=== PATIENT | female | born 1970 | race Caucasian/White ===

== ENCOUNTER 2016-04-06 03:39 | Inpatient (IN) | payer OTHER ==
[~2016-04-06] VITALS: Ht 167.6 cm; Wt 82.0 kg
--- NOTE | ~2016-04-06 | PR ---
[place], [place] PROGRESS NOTE NAME: FORTINO CASTANO UNIT #: [id number] ROOM: 532 DOCTOR: DEVON PRESTON MD BIRTHDATE: [birth year] DOS: This is postop day 1 visit on her. The patient had a large right elbow abscess which was drained out and was packed. She is doing overall much better actually. The dressing is intact and the erythema is slowly receding. We will see her again and change the packing. Devon Preston MD CM:PNNENA [id number] DEVON PRESTON MD 04/08/16 2215 interface
--- NOTE | ~2016-04-06 | PR ---
[place], [place] PROGRESS NOTE NAME: [id number] UNIT #: [id number] ROOM: 532 DOCTOR: DEVON PRESTON MD BIRTHDATE: [birth year] DOS: SUBJECTIVE: Today is the second postop day after incision and drainage of large right elbow abscess. Overall, she is doing okay. Dressing was changed today and packing was removed. There is still some periabscess and induration deeply, but overall her arm and hand are getting less swollen. I did change the dressing with packing and light wrap. Recommend maybe Celebrex 200 mg p.o. b.i.d. for pain and q.o.d. change of dressing. Also, advised the patient to keep the hand up to get the swelling down, she understands. Devon Preston MD CM:PNTRANS [phone] DEVON PRESTON MD 04/09/16 0953 interface
--- NOTE | ~2016-04-06 | CON ---
[place], [place] REPORT OF CONSULTATION NAME[id number] UNIT #: [id number] ROOM: 532 DOCTOR: ERENDIRA MONTGOMERY MD BIRTHDATE: [birth year] DOS: REASON FOR CONSULTATION: Right upper extremity cellulitis. CONSULTING DOCTOR: Dr. Dailey. HISTORY OF PRESENTING ILLNESS: This is a 45-year-old woman, who is an intravenous drug abuser, who was admitted after she injected Percocet along with opana into the antecubital fossa of her right arm 4 days ago and apparently her had helped her to get injection into her right arm and he missed the vein and injected into the tissue. She had burning, worsening swelling and pain. She was unable to bend her arm. She came in and had incision and drainage by Dr. Preston on 04/06/2016. PAST MEDICAL HISTORY: Positive for history of antiphospholipid antibody syndrome, pulmonary embolism. PAST SURGICAL HISTORY: Includes hernia repair and tubal ligation. SOCIAL HISTORY: Ex-smoker. Does not drink alcohol. Occasional marijuana abuse, IV heroin and Percocet and IV opana abuse. FAMILY HISTORY: Mother has antiphospholipid antibody syndrome. Father has diabetes. ALLERGIES: No known drug allergies. HOME MEDICATIONS: No home medications except intravenous drugs that she abuses. REVIEW OF SYSTEMS: A 14-review of systems otherwise negative unless otherwise specified in the HPI. PHYSICAL EXAMINATION: VITAL SIGNS: Showed temperature of 98.1, heart rate 59, blood pressure 127/63, respiratory rate of 19, pulse ox of 100 on room air. GENERAL APPEARANCE: Awake, alert, oriented in time, place, and person, in no acute distress. HEENT: Oral cavity moist. NECK: Supple, no JVD, no lymphadenopathy. HEART: Regular rate and rhythm. S1, S2 normal. No murmurs, gallops or rubs. LUNGS: Clear bilaterally. ABDOMEN: Soft, nontender, nondistended, good bowel sounds. EXTREMITIES: Warm to touch. Pulses palpated bilaterally. Right antecubital fossa with redness involving the forearm and distal arm and surgically made incision with packing with surrounding erythema, pain and induration. LABORATORY DATA: Reviewed. WBC of 6.8, hemoglobin 9.6, platelets 169,000. BUN 15, creatinine 0.61, AST 26, ALT 42, alkaline phosphatase 69. Blood cultures pending, so far showing no growth. [place], [place] REPORT OF CONSULTATION NAME: FORTINO CASTANO UNIT #: [id number] ROOM: 532 DOCTOR: ERENDIRA MONTGOMERY MD BIRTHDATE: [birth year] IMAGING: Upper extremity ultrasound showing soft tissue density suggestive of abscess or phlegmon. ASSESSMENT AND PLAN: Right antecubital cellulitis with abscess secondary to intravenous drug abuse, status post incision and drainage. Currently on IV vancomycin and Zosyn. We will discontinue Zosyn, continue her on IV vancomycin. Follow blood cultures. The patient has no stigmata or signs of endocarditis. If she continues to improve in next 48 hours, could be discharged home on oral Bactrim two double strength twice daily for 10 more days. ERENDIRA MONTGOMERY MD CM:CONSTR:REPORT OF CONSULTATION 1717 05/12/16 1053 interface
--- NOTE | ~2016-04-06 | CON ---
[place], [place] REPORT OF CONSULTATION NAME: FORTINO CASTANO UNIT #: [id number] ROOM: 532 DOCTOR: DEVON PRESTON MD BIRTHDATE: [birth year] DOS: 04/06/2016 REASON FOR CONSULTATION: Right elbow abscess. HISTORY OF PRESENT ILLNESS: I saw this patient in the Emergency Room. The ER physician called me and I went down and saw the patient. She has developed a right elbow swelling, redness, a painful lump. The story is that she actually injected some drug into her vein and it has been going on for a few days now. She denies any fever. REVIEW OF SYSTEMS: Otherwise, unremarkable. ALLERGIES: No known allergy. PHYSICAL EXAMINATION: Limited to the elbow. She is keeping her elbow flexed. A medium-sized lump there. Periphery is red and middle is yellowish, is fluctuant in the middle and is very tender. Motion of the elbow causes pain. IMPRESSION: Right elbow abscess. She has been on antibiotic. I scheduled her for an I and D of the abscess tomorrow morning and she is scheduled. I did talk to the patient, she understands and agrees. Devon Preston MD CM:CONSTR:REPORT OF CONSULTATION 1701 04/07/16 0136 interface
--- NOTE | ~2016-04-06 | O ---
[place], [place] OPERATIVE NOTE NAME: FORTINO CASTANO UNIT #: [id number] ROOM: [facility] DOCTOR: DEVON PRESTON MD BIRTHDATE: [birth year] DOS: 04/07/2016 PREOPERATIVE DIAGNOSIS: Right elbow abscess. POSTOPERATIVE DIAGNOSIS: Right elbow abscess. PROCEDURE: Incision and drainage and packing. SURGEON: Devon Preston MD DESCRIPTION OF PROCEDURE: After MAC anesthesia, the patient's right arm and elbow were prepped and draped in normal sterile fashion. On palpation, the most fluctuant soft portion is identified and using 11 blade, incision made and large amount of pus was evacuated. Cultures were taken also. The incision is enlarged to accommodate my finger in to break all the loculi. Once that was done, I cleaned that area with peroxide and Betadine. A 4 x 4 used, soaked with Betadine as a packing. Pressure dressing applied. The patient tolerated the procedure well and sent to room. Devon Preston MD CM:OPRECORD:OPERATIVE NOTE [phone] DEVON PRESTON MD 04/07/16 0837 interface
[~2016-04-06 03:39] MED LIST: AUGMENTIN 875875 MG PO; CLINDAMYCIN HC300 MG PO; COUMADIN7.5 M1 PO; DULOXETINE HCL30 MG PO; HYDROCODONE BIT1 T11 PO; LIDOCAINE VISC100 ML MM; MOTRIN800 MG PO; NORVASC5 MG PO; PERIDEX118 ML MM; PRINIVIL20 M1 PO; Peridex 473 ML473 ML PO; SEPTRA DS 800 M1 TAB PO; TYLENOL325 M1 PO; XANAX1 MG PO; XARE20MG PO; [UNRECOGNIZED DRUG - OTHER] PO
[2016-04-06 03:54] VITALS: BP 135/87
[2016-04-06 04:18] LABS: BASO # 0.1 10*3/uL (0.0-0.1); BASO % 0.6 % (0.0-1.0); EOS # 0.2 10*3/uL (0.0-0.4); EOS % 2.2 % (1.0-4.0); HEMATOCRIT 35.8 % (37.0-47.0); HEMOGLOBIN 11.2 g/dl (12.0-16.0); LYMPH # 2.2 10*3/uL (1.3-4.4); LYMPH % 20.1 % (27.0-41.0); MEAN CELL VOLUME 79.9 fl (81.0-99.0); MEAN CORPUSCULAR HGB CONC 31.3 g/dl (33.0-37.0); MEAN PLATELET VOLUME 12.1 fl (9.6-12.3); MONO # 0.9 10*3/uL (0.1-1.0); MONO % 8.1 % (3.0-9.0); NEUT # 7.4 10*3/uL (2.3-7.9); NEUT % 68.7 % (47.0-73.0); PLATELET COUNT AUTOMATED 201 10*3/uL (130-400); RED BLOOD COUNT 4.48 10*6/uL (4.10-5.10); RED CELL DISTRI WIDTH 15.9 % (0-14.5); WHITE BLOOD COUNT 10.7 10*3/uL (4.8-10.8)
[2016-04-06 04:45] LABS: ALKALINE PHOSPHATASE 90 U/L (45-117); B-hCG (QUALITATIVE) NEGATIVE (NEGATIVE); BILIRUBIN, TOTAL 0.2 mg/dl (0.2-1.0); BUN 14 mg/dl (7-24); C-REACTIVE PROTEIN 5.53 MG/DL (0-0.3); CARBON DIOXIDE 25 mmol/L (21-32); CHLORIDE 106 mmol/L (98-107); EST GLOM FILT AFRICAN AMERICAN > 60 ml/min; GLUCOSE 109 mg/dL (65-99); POTASSIUM 3.8 mmol/L (3.5-5.1); SGOT/AST 31 IU/L (3-35); SGPT/ALT 60 U/L (12-78); SODIUM 140 mmol/L (136-145); TOTAL PROTEIN 7.3 gm/dL (6.4-8.2)
[2016-04-06 05:02] LABS: BILIRUBIN NEGATIVE (NEGATIVE); BLOOD NEGATIVE (NEGATIVE); CLARITY SL CLOUDY (CLEAR); COLOR YELLOW (YELLOW); GLUCOSE NEGATIVE (NEGATIVE); KETONE NEGATIVE (NEGATIVE); LEUKO ESTERASE 1+ (NEGATIVE); NITRITE NEGATIVE (NEGATIVE); PROTEIN TRACE (NEGATIVE); SPECIFIC GRAVITY 1.015 (1.005-1.030); UROBILINOGEN 0.2 E.U./dl (0.2-1.0)
[2016-04-06 05:10] LABS: EPITHELIAL CELLS 45-50
[2016-04-06 05:12] LABS: URINE AMPHETAMINES > 1000 (1000ng/ml); URINE BARBITURATES < 200 (200ng/ml); URINE COCAINE < 300 (300ng/ml)
[2016-04-06 05:13] LABS: WBC 21-30 wbc/hpf (0-5)
[2016-04-06 05:14] LABS: BACTERIA TRACE; URINE REFLEX COMMENT YES (NO)
[2016-04-06 06:39] LABS: MAGNESIUM 2.1 mg/dL (1.5-2.1); PHOSPHOROUS 2.5 mg/dL (2.5-4.9)
[2016-04-06 07:35] LABS: FOLIC ACID 5.52 ng/mL (>5.38); VITAMIN D, 25-HYDROXY 9.9 ng/mL (30-100)
[2016-04-06 07:47] VITALS: BP 138/86
[2016-04-06 12:15] VITALS: BP 89/44
[2016-04-06 16:00] VITALS: BP 110/55
[2016-04-06 20:00] VITALS: BP 113/61
[2016-04-07] VITALS (10 sets, daily range): BP systolic 125–147; BP diastolic 63–94
[2016-04-07 06:49] LABS: BASO % 0.4 % (0.0-1.0); EOS # 0.2 10*3/uL (0.0-0.4); EOS % 3.3 % (1.0-4.0); HEMATOCRIT 31.9 % (37.0-47.0); HEMOGLOBIN 9.6 g/dl (12.0-16.0); LYMPH # 1.8 10*3/uL (1.3-4.4); LYMPH % 26.1 % (27.0-41.0); MEAN CELL VOLUME 82.2 fl (81.0-99.0); MEAN CORPUSCULAR HGB 24.7 pg (27.0-31.0); MEAN CORPUSCULAR HGB CONC 30.1 g/dl (33.0-37.0); MEAN PLATELET VOLUME 12.1 fl (9.6-12.3); MONO # 0.6 10*3/uL (0.1-1.0); MONO % 8.1 % (3.0-9.0); NEUT # 4.2 10*3/uL (2.3-7.9); NEUT % 61.8 % (47.0-73.0); PLATELET COUNT AUTOMATED 169 10*3/uL (130-400); RED BLOOD COUNT 3.88 10*6/uL (4.10-5.10); RED CELL DISTRI WIDTH 15.9 % (0-14.5); WHITE BLOOD COUNT 6.8 10*3/uL (4.8-10.8)
[2016-04-07 07:30] LABS: ALBUMIN 2.1 gm/dl (3.1-4.5); ALKALINE PHOSPHATASE 69 U/L (45-117); BILIRUBIN, TOTAL 0.2 mg/dl (0.2-1.0); BUN 15 mg/dl (7-24); CARBON DIOXIDE 22 mmol/L (21-32); CHLORIDE 115 mmol/L (98-107); EST GLOM FILT AFRICAN AMERICAN > 60 ml/min; GLUCOSE 84 mg/dL (65-99); POTASSIUM 4.2 mmol/L (3.5-5.1); SGOT/AST 26 IU/L (3-35); SGPT/ALT 42 U/L (12-78); SODIUM 145 mmol/L (136-145); TOTAL PROTEIN 5.3 gm/dL (6.4-8.2)
[2016-04-08] VITALS (7 sets, daily range): BP systolic 105–165; BP diastolic 58–90
[2016-04-08] MEDS ORDERED: VIBRA-TAB100 MG PO ×2 (15:40→15:52)
[2016-04-09] VITALS: BP 126/74
[2016-04-09 05:47] LABS: BASO # 0.1 10*3/uL (0.0-0.1); BASO % 0.9 % (0.0-1.0); EOS # 0.3 10*3/uL (0.0-0.4); EOS % 5.1 % (1.0-4.0); HEMATOCRIT 31.5 % (37.0-47.0); HEMOGLOBIN 9.6 g/dl (12.0-16.0); LYMPH # 1.8 10*3/uL (1.3-4.4); LYMPH % 31.2 % (27.0-41.0); MEAN CELL VOLUME 80.2 fl (81.0-99.0); MEAN CORPUSCULAR HGB 24.4 pg (27.0-31.0); MEAN CORPUSCULAR HGB CONC 30.5 g/dl (33.0-37.0); MEAN PLATELET VOLUME 11.5 fl (9.6-12.3); MONO # 0.3 10*3/uL (0.1-1.0); MONO % 5.6 % (3.0-9.0); NEUT # 3.3 10*3/uL (2.3-7.9); PLATELET COUNT AUTOMATED 194 10*3/uL (130-400); RED BLOOD COUNT 3.93 10*6/uL (4.10-5.10); RED CELL DISTRI WIDTH 15.4 % (0-14.5); WHITE BLOOD COUNT 5.9 10*3/uL (4.8-10.8)
[2016-04-09 08:00] VITALS: BP 150/80
[2016-04-09 12:00] VITALS: BP 154/75
[2016-04-09] MEDS ORDERED: ATARAX,VISTARIL50 MG PO (13:11)
[2016-04-09] MEDS ORDERED: D-1000 185 MG-11 TAB PO (13:11)
[2016-04-09] MEDS ORDERED: NATURE'S BLEND F1 MG PO (13:11)
[2016-04-09] MEDS ORDERED: VITAMIN B-11 TAB PO (13:11)
[2016-04-09] MEDS ORDERED: CARBIDOPA/LEVOD1 TA1 PO (13:11)
[2016-04-09] MEDS ORDERED: METHOCARBAMOL750 M1 PO (13:11)
[2016-04-09] MEDS ORDERED: THERA TABS1 TAB PO (13:11)
[2016-04-09] MEDS ORDERED: XARE15TA PO (13:11)
== END 2016-04-09 14:45 | disposition home or self-care (01) | DRG 602 ==
LOC: ED 03:39 → EDHOLD 05:23 → 5E 11:57
PROVIDERS: Emergency Medicine Emergency Medical Services; Hospitalist
PROC: 0R9L0ZX Drainage of Right Elbow Joint, Open Approach, Diagnostic (ICD-10-PCS; principal; 2016-04-07)
DX: L03.113 Cellulitis of right upper limb (principal); E43 Unspecified severe protein-calorie malnutrition; D68.59 Other primary thrombophilia; F11.23 Opioid dependence with withdrawal; D68.61 Antiphospholipid syndrome; D64.9 Anemia, unspecified; F12.10 Cannabis abuse, uncomplicated; E55.9 Vitamin D deficiency, unspecified; L02.413 Cutaneous abscess of right upper limb; Z86.711 Personal history of pulmonary embolism; Z98.51 Tubal ligation status; Z87.891 Personal history of nicotine dependence; Z91.14 Patient's other noncompliance with medication regimen; Z83.3 Family history of diabetes mellitus; Z68.29 Body mass index [BMI] 29.0-29.9, adult

== ENCOUNTER 2016-09-16 17:44 | Emergency (ER) | payer OTHER ==
[~2016-09-16] VITALS: Ht 167.6 cm; Wt 81.6 kg
[~2016-09-16 17:44] MED LIST changes: +ATARAX,VISTARIL50 MG PO; +CARBIDOPA/LEVOD1 TA1 PO; +D-1000 185 MG-11 TAB PO; +METHOCARBAMOL750 M1 PO; +NATURE'S BLEND F1 MG PO; +THERA TABS1 TAB PO; +VIBRA-TAB100 MG PO; +VITAMIN B-11 TAB PO; +XARE15TA PO
[2016-09-16 17:57] VITALS: BP 151/95
[2016-09-16 18:38] LABS: BASO # 0.1 10*3/uL (0.0-0.1); BASO % 0.6 % (0.0-1.0); EOS # 0.1 10*3/uL (0.0-0.4); EOS % 0.7 % (1.0-4.0); HEMATOCRIT 36.7 % (37.0-47.0); LYMPH # 2.7 10*3/uL (1.3-4.4); LYMPH % 28.7 % (27.0-41.0); MEAN CELL VOLUME 75.8 fl (81.0-99.0); MEAN CORPUSCULAR HGB 22.7 pg (27.0-31.0); MEAN PLATELET VOLUME 11.4 fl (9.6-12.3); MONO # 0.3 10*3/uL (0.1-1.0); NEUT # 6.3 10*3/uL (2.3-7.9); NEUT % 66.7 % (47.0-73.0); PLATELET COUNT AUTOMATED 338 10*3/uL (130-400); RED BLOOD COUNT 4.84 10*6/uL (4.10-5.10); RED CELL DISTRI WIDTH 16.7 % (0-14.5); WHITE BLOOD COUNT 9.4 10*3/uL (4.8-10.8)
[2016-09-16] MEDS ORDERED: CEPHALEXIN500 M1 PO (18:51)
[2016-09-16 18:53] LABS: ALBUMIN 3.4 gm/dl (3.1-4.5); ALKALINE PHOSPHATASE 83 U/L (45-117); BILIRUBIN, TOTAL 0.4 mg/dl (0.2-1.0); BUN 11 mg/dl (7-24); CARBON DIOXIDE 25 mmol/L (21-32); CHLORIDE 107 mmol/L (98-107); EST GLOM FILT AFRICAN AMERICAN > 60 ml/min; GLUCOSE 102 mg/dL (65-99); POTASSIUM 3.9 mmol/L (3.5-5.1); SGOT/AST 17 IU/L (3-35); SGPT/ALT 20 U/L (12-78); SODIUM 141 mmol/L (136-145); TOTAL PROTEIN 7.7 gm/dL (6.4-8.2)
[2016-09-16] MEDS ORDERED: Motrin,Rufen800 MG PO (19:06)
== END 2016-09-16 19:16 | disposition home or self-care (01) ==
LOC: ED 17:44
PROVIDERS: Registered Nurse
DX: N61.0 Mastitis without abscess (principal); D64.9 Anemia, unspecified; R11.2 Nausea with vomiting, unspecified; F11.10 Opioid abuse, uncomplicated; F12.10 Cannabis abuse, uncomplicated; F17.200 Nicotine dependence, unspecified, uncomplicated

== ENCOUNTER 2018-11-13 12:20 | Emergency (ER) | payer SELFPAY ==
[~2018-11-13] VITALS: Ht 167.6 cm; Wt 79.4 kg
--- NOTE | ~2018-11-13 | EKG ---
[place], [place] ELECTROCARDIOGRAM REPORT NAME: FORTINO CASTANO UNIT #: [id number] ROOM: DOCTOR: MAITE DRAFT REPORT BIRTHDATE: [birth year] [facility] Test Date: 2018-11-13 Test Time: 12:47:21 Pat Name: FORTINO CASTANO Department: Room: Gender: F Clinical Provider Trainer: : 1970 Requested By: VALERIE HAYNES Order Number: [id number] Reading MD: Shante Mcknight MD Measurements Intervals [place] Rate: 80 P: 65 MI: 125 QRS: 40 QRSD: 105 T: 49 QT: 391 QTc: 451 Interpretive Statements Sinus rhythm No previous ECG available for comparison Electronically Signed On 11-15-2018 8:04:00 PDT by Shante Mcknight MD CM:EKGRPT:ELECTROCARDIOGRAM REPORT [id number] VALERIE ARORA DRAFT REPORT VALERIE HAYNES M.D.
[~2018-11-13 12:20] MED LIST changes: +CEPHALEXIN500 M1 PO; +Motrin,Rufen800 MG PO
[2018-11-13 14:07] LABS: ALBUMIN 3.5 gm/dl (3.1-4.5); ALKALINE PHOSPHATASE 80 U/L (45-117); BUN 10 mg/dl (7-24); CHLORIDE 112 mmol/L (98-107); CREATININE 0.73 mg/dL (0.55-1.02); POTASSIUM 3.8 mmol/L (3.5-5.1); SGOT/AST 23 IU/L (3-35); SGPT/ALT 43 U/L (12-78); SODIUM 140 mmol/L (136-145); TOTAL PROTEIN 7.4 gm/dL (6.4-8.2)
[2018-11-13 14:14] LABS: TROPONIN I < 0.015 ng/ml (<0.045)
[2018-11-13 14:24] LABS: BASO # 0.1 10*3/uL (0.0-0.1); BASO % 0.6 % (0.0-1.0); EOS # 0.1 10*3/uL (0.0-0.4); EOS % 0.7 % (1.0-4.0); HEMATOCRIT 34.9 % (37.0-47.0); HEMOGLOBIN 10.9 g/dl (12.0-16.0); LYMPH # 1.7 10*3/uL (1.3-4.4); LYMPH % 20.7 % (27.0-41.0); MEAN CORPUSCULAR HGB 24.7 pg (27.0-31.0); MEAN CORPUSCULAR HGB CONC 31.2 g/dl (33.0-37.0); MEAN PLATELET VOLUME 12.2 fl (9.6-12.3); MONO # 0.6 10*3/uL (0.1-1.0); MONO % 6.9 % (3.0-9.0); NEUT # 5.7 10*3/uL (2.3-7.9); NEUT % 70.7 % (47.0-73.0); PLATELET COUNT AUTOMATED 210 10*3/uL (130-400); RED BLOOD COUNT 4.42 10*6/uL (4.10-5.10); RED CELL DISTRI WIDTH 16.3 % (0-14.5); WHITE BLOOD COUNT 8.1 10*3/uL (4.8-10.8)
[2018-11-13 15:35] VITALS: BP 155/98
== END 2018-11-13 16:09 | disposition home or self-care (01) ==
LOC: ED 12:20
PROVIDERS: Nurse Practitioner Family
DX: G56.31 Lesion of radial nerve, right upper limb (principal); Z79.2 Long term (current) use of antibiotics; Z79.899 Other long term (current) drug therapy; Z90.49 Acquired absence of other specified parts of digestive tract; Z87.891 Personal history of nicotine dependence

== ENCOUNTER 2019-09-28 16:16 | Emergency (ER) | payer OTHER ==
[~2019-09-28] VITALS: Ht 170.1 cm; Wt 79.4 kg
[2019-09-28 16:25] VITALS: BP 133/82
[2019-09-28 17:14] LABS: BASO # 0.1 10*3/uL (0.0-0.1); BASO % 0.6 % (0.0-1.0); EOS # 0.3 10*3/uL (0.0-0.4); EOS % 2.8 % (1.0-4.0); HEMATOCRIT 35.1 % (37.0-47.0); LYMPH # 2.8 10*3/uL (1.3-4.4); MEAN CELL VOLUME 82.6 fl (81.0-99.0); MEAN CORPUSCULAR HGB 25.2 pg (27.0-31.0); MEAN CORPUSCULAR HGB CONC 30.5 g/dl (33.0-37.0); MEAN PLATELET VOLUME 11.4 fl (9.6-12.3); MONO # 0.7 10*3/uL (0.1-1.0); MONO % 5.6 % (3.0-9.0); NEUT # 8.3 10*3/uL (2.3-7.9); NEUT % 67.8 % (47.0-73.0); PLATELET COUNT AUTOMATED 299 10*3/uL (130-400); RED BLOOD COUNT 4.25 10*6/uL (4.10-5.10); RED CELL DISTRI WIDTH 16.8 % (0-14.5); WHITE BLOOD COUNT 12.2 10*3/uL (4.8-10.8)
[2019-09-28 17:43] LABS: ALBUMIN 3.4 gm/dl (3.1-4.5); ALKALINE PHOSPHATASE 111 U/L (45-117); BUN 21 mg/dl (7-24); CHLORIDE 109 mmol/L (98-107); CREATININE 1.08 mg/dL (0.55-1.02); LIPASE 63 U/L (73-393); SGOT/AST 10 IU/L (3-35); SGPT/ALT 23 U/L (12-78); SODIUM 139 mmol/L (136-145); TOTAL PROTEIN 7.7 gm/dL (6.4-8.2)
[2019-09-28] MEDS ORDERED: Motrin,Rufen800 MG PO (18:39)
== END 2019-09-28 18:49 | disposition home or self-care (01) ==
LOC: ED 16:16
PROVIDERS: Emergency Medicine
DX: M25.512 Pain in left shoulder (principal); M79.671 Pain in right foot; M79.672 Pain in left foot; F17.200 Nicotine dependence, unspecified, uncomplicated; Z79.899 Other long term (current) drug therapy; Z90.49 Acquired absence of other specified parts of digestive tract

== ENCOUNTER 2020-03-12 20:11 | Emergency (ER) | payer OTHER ==
[~2020-03-12] VITALS: Ht 167.6 cm; Wt 79.4 kg
[2020-03-12 20:24] VITALS: BP 147/95
[2020-03-12 21:11] LABS: BASO % 0.4 % (0.0-1.0); EOS % 0.2 % (1.0-4.0); HEMATOCRIT 33.8 % (37.0-47.0); LYMPH # 1.7 10*3/uL (1.3-4.4); LYMPH % 20.6 % (27.0-41.0); MEAN CELL VOLUME 79.5 fl (81.0-99.0); MEAN CORPUSCULAR HGB 24.7 pg (27.0-31.0); MEAN CORPUSCULAR HGB CONC 31.1 g/dl (33.0-37.0); MEAN PLATELET VOLUME 10.8 fl (9.6-12.3); MONO # 0.7 10*3/uL (0.1-1.0); MONO % 8.2 % (3.0-9.0); NEUT # 5.7 10*3/uL (2.3-7.9); NEUT % 70.5 % (47.0-73.0); PLATELET COUNT AUTOMATED 243 10*3/uL (130-400); RED BLOOD COUNT 4.25 10*6/uL (4.10-5.10); RED CELL DISTRI WIDTH 15.9 % (0-14.5); WHITE BLOOD COUNT 8.1 10*3/uL (4.8-10.8)
[2020-03-12 21:26] LABS: ALBUMIN 3.4 gm/dl (3.1-4.5); ALKALINE PHOSPHATASE 106 U/L (45-117); BUN 22 mg/dl (7-24); CHLORIDE 105 mmol/L (98-107); POTASSIUM 3.6 mmol/L (3.5-5.1); SGOT/AST 16 IU/L (3-35); SGPT/ALT 28 U/L (12-78); SODIUM 137 mmol/L (136-145); TOTAL PROTEIN 7.4 gm/dL (6.4-8.2)
[2020-03-12 21:29] LABS: TROPONIN I < 0.015 ng/ml (<0.045)
[2020-03-12] MEDS ORDERED: CEPHALEXIN500 M1 PO (23:28)
== END 2020-03-13 00:08 | disposition home or self-care (01) ==
LOC: ED 20:11
PROVIDERS: Emergency Medicine
DX: R09.1 Pleurisy (principal); R07.89 Other chest pain; Z79.899 Other long term (current) drug therapy

== ENCOUNTER 2020-03-18 18:12 | Emergency (ER) | payer OTHER ==
[2020-03-18 18:15] VITALS: BP 161/91
== END 2020-03-18 19:30 | disposition left against medical advice (07) ==
LOC: ED 18:12
DX: T40.1X1A Poisoning by heroin, accidental (unintentional), initial encounter (principal); Y92.89 Other specified places as the place of occurrence of the external cause

== ENCOUNTER 2020-12-06 22:48 | Emergency (ER) | payer OTHER ==
[2020-12-06 23:17] VITALS: BP 136/72
== END 2020-12-06 23:00 | disposition left against medical advice (07) ==
LOC: ED 22:48
DX: F10.920 Alcohol use, unspecified with intoxication, uncomplicated (principal); R06.02 Shortness of breath; F41.9 Anxiety disorder, unspecified; Z53.29 Procedure and treatment not carried out because of patient's decision for other reasons; Z79.2 Long term (current) use of antibiotics; Z79.899 Other long term (current) drug therapy; Z98.890 Other specified postprocedural states; Z98.51 Tubal ligation status; Z90.49 Acquired absence of other specified parts of digestive tract; Z87.891 Personal history of nicotine dependence

== ENCOUNTER 2023-03-06 19:09 | Emergency (ER) | payer OTHER ==
[2023-03-06 19:13] VITALS: BP 151/99
[2023-03-06 19:34] LABS: BASO # 0.1 10*3/uL (0.0-0.1); BASO % 1.3 % (0.0-1.0); EOS # 0.4 10*3/uL (0.0-0.4); EOS % 3.8 % (1.0-4.0); HEMATOCRIT 30.6 % (37.0-47.0); LYMPH # 3.1 10*3/uL (1.3-4.4); LYMPH % 29.8 % (27.0-41.0); MEAN CELL VOLUME 73.2 fl (81.0-99.0); MEAN CORPUSCULAR HGB 19.6 pg (27.0-31.0); MEAN CORPUSCULAR HGB CONC 26.8 g/dl (33.0-37.0); MEAN PLATELET VOLUME 10.8 fl (9.6-12.3); MONO # 0.5 10*3/uL (0.1-1.0); NEUT # 6.3 10*3/uL (2.3-7.9); NEUT % 59.9 % (47.0-73.0); PLATELET COUNT AUTOMATED 268 10*3/uL (130-400); RED BLOOD COUNT 4.18 10*6/uL (4.10-5.10); RED CELL DISTRI WIDTH 18.9 % (0-14.5); WHITE BLOOD COUNT 10.4 10*3/uL (4.8-10.8)
[2023-03-06 19:54] LABS: ALKALINE PHOSPHATASE 126 U/L (46-116); BUN 20 mg/dl (9-23); CHLORIDE 103 mmol/L (98-107); CPK 173 U/L (34-171); SGPT/ALT 16 U/L (5-49); TOTAL PROTEIN 7.5 gm/dL (6.0-8.0)
[2023-03-06 20:23] LABS: BILIRUBIN Negative (Negative); BLOOD Trace-Lysed (Negative); CLARITY Cloudy (Clear); COLOR Yellow (Yellow); GLUCOSE Negative (Negative); KETONE Negative (Negative); LEUKO ESTERASE 2+ (Negative); NITRITE Negative (Negative); PH 5.5 (4.5-8.0); SPECIFIC GRAVITY 1.015 (1.001-1.030); UROBILINOGEN 0.2 E.U./dl (0.0-1.0)
[2023-03-06 20:30] LABS: URINE AMPHETAMINES Positive (1000ng/ml); URINE BARBITURATES Negative (200ng/ml); URINE BENZODIAZEPINES Negative (200ng/ml); URINE CANNABINOIDS (THC) Positive (50ng/ml); URINE COCAINE Positive (300ng/ml); URINE METHADONE Negative (300ng/ml); URINE OPIATES Negative (300ng/ml); URINE PHENCYCLIDINE Negative (25ng/ml)
[2023-03-06 20:32] LABS: BACTERIA 4+; WBC 41-50 wbc/hpf (0-5)
[2023-03-07] MEDS ORDERED: CIPRO500 MG PO (00:47)
== END 2023-03-07 01:00 | disposition home or self-care (01) ==
LOC: ED 19:09
PROVIDERS: Internal Medicine
DX: F15.10 Other stimulant abuse, uncomplicated (principal); F14.90 Cocaine use, unspecified, uncomplicated; D50.9 Iron deficiency anemia, unspecified; N39.0 Urinary tract infection, site not specified; E83.52 Hypercalcemia; R74.8 Abnormal levels of other serum enzymes; E87.6 Hypokalemia; R00.0 Tachycardia, unspecified; Z79.2 Long term (current) use of antibiotics; Z79.899 Other long term (current) drug therapy; Z98.890 Other specified postprocedural states; Z98.51 Tubal ligation status; Z90.49 Acquired absence of other specified parts of digestive tract; Z87.891 Personal history of nicotine dependence

== ENCOUNTER → 2023-06-06 | Emergency (ER) | payer OTHER ==
[~2023-06-06] VITALS: Ht 167.6 cm; Wt 725.7 kg
[~2023-06-06] MED LIST changes: +CIPRO500 MG PO; +LORazepam 2 MG TAB PO ONE
[2023-06-06 03:57] LABS: URINE AMPHETAMINES Positive (1000ng/ml); URINE BARBITURATES Negative (200ng/ml); URINE BENZODIAZEPINES Negative (200ng/ml); URINE CANNABINOIDS (THC) Positive (50ng/ml); URINE COCAINE Negative (300ng/ml); URINE METHADONE Negative (300ng/ml); URINE OPIATES Negative (300ng/ml); URINE PHENCYCLIDINE Negative (25ng/ml)
[2023-06-06 06:30] VITALS: BP 157/89
== END ==
LOC: ED 03:21
PROVIDERS: Internal Medicine
DX: F15.129 Other stimulant abuse with intoxication, unspecified (principal); F41.9 Anxiety disorder, unspecified; F11.10 Opioid abuse, uncomplicated; F12.10 Cannabis abuse, uncomplicated; Z90.49 Acquired absence of other specified parts of digestive tract; Z98.51 Tubal ligation status; Z98.890 Other specified postprocedural states; Z79.899 Other long term (current) drug therapy

== ENCOUNTER 2023-09-26 21:24 | Emergency (ER) | payer OTHER ==
[~2023-09-26] VITALS: Ht 167.6 cm; Wt 77.1 kg
[~2023-09-26 21:24] MED LIST changes: -LORazepam 2 MG TAB PO ONE
[2023-09-26 22:49] LABS: BASO # 0.1 10*3/uL (0.0-0.1); BASO % 0.5 % (0.0-1.0); EOS # 0.3 10*3/uL (0.0-0.4); EOS % 2.8 % (1.0-4.0); HEMATOCRIT 28.5 % (37.0-47.0); LYMPH # 2.2 10*3/uL (1.3-4.4); LYMPH % 21.9 % (27.0-41.0); MEAN CELL VOLUME 70.7 fl (81.0-99.0); MEAN CORPUSCULAR HGB 20.3 pg (27.0-31.0); MEAN CORPUSCULAR HGB CONC 28.8 g/dl (33.0-37.0); MEAN PLATELET VOLUME 10.4 fl (9.6-12.3); MONO # 0.7 10*3/uL (0.1-1.0); MONO % 6.9 % (3.0-9.0); NEUT # 6.7 10*3/uL (2.3-7.9); NEUT % 67.6 % (47.0-73.0); PLATELET COUNT AUTOMATED 215 10*3/uL (130-400); RED BLOOD COUNT 4.03 10*6/uL (4.10-5.10); RED CELL DISTRI WIDTH 22.5 % (0-14.5); WHITE BLOOD COUNT 9.9 10*3/uL (4.8-10.8)
[2023-09-26 23:13] LABS: ALKALINE PHOSPHATASE 72 U/L (46-116); BUN 13 mg/dl (9-23); CHLORIDE 110 mmol/L (98-107); POTASSIUM 2.7 mmol/L (3.4-5.1); SGPT/ALT 19 U/L (5-49); TOTAL PROTEIN 6.6 gm/dL (6.0-8.0)
[2023-09-26] MEDS ORDERED: Ondansetron Hydrochloride 4 MG/2 ML VIAL IV ONE (23:55)
[2023-09-26] MEDS ORDERED: MORPHINE Sulfate 2 MG/ML SYR IV ONE (23:55)
[2023-09-27] MEDS ORDERED: IOHEXOL 350 MG/ML 100 ML VIAL IV ONE ×2 (02:00→02:48)
[2023-09-27] MEDS ORDERED: fentaNYL CITRATE 100 MCG/2 ML VIAL IV ONE (02:00)
[2023-09-27] MEDS ORDERED: SODIUM CHLORIDE 0.9% 100 ML BAG IV ONE (02:00)
[2023-09-27] MEDS ORDERED: POTASSIUM CHLORIDE IN WATER 100 ML IV SCH (02:00)
[2023-09-27] MEDS ORDERED: SODIUM CHLORIDE 0.9% 100 ML IV ONE (02:48)
[2023-09-27 03:53] VITALS: BP 181/106
[2023-09-27] MEDS ORDERED: ESMOLOL HCL IN STERILE WATER 250 ML IV SCH (04:00)
== END 2023-09-27 05:45 | disposition short-term general hospital (02) ==
LOC: ED 21:24
PROVIDERS: Emergency Medicine
DX: I71.00 Dissection of unspecified site of aorta (principal); E87.6 Hypokalemia; E44.0 Moderate protein-calorie malnutrition; F17.200 Nicotine dependence, unspecified, uncomplicated; Z79.2 Long term (current) use of antibiotics; Z79.899 Other long term (current) drug therapy; Z86.711 Personal history of pulmonary embolism; Z98.890 Other specified postprocedural states; Z98.51 Tubal ligation status; Z90.49 Acquired absence of other specified parts of digestive tract

== ENCOUNTER 2024-03-04 20:35 | Emergency (ER) | payer OTHER ==
[~2024-03-04] VITALS: Ht 167.6 cm; Wt 71.7 kg
[2024-03-04 20:42] VITALS: BP 125/83
== END 2024-03-04 21:22 | disposition left against medical advice (07) ==
LOC: ED 20:35
DX: T50.901A Poisoning by unspecified drugs, medicaments and biological substances, accidental (unintentional), initial encounter (principal); Z98.890 Other specified postprocedural states; Z90.49 Acquired absence of other specified parts of digestive tract; Z87.891 Personal history of nicotine dependence; Z53.29 Procedure and treatment not carried out because of patient's decision for other reasons; Y92.89 Other specified places as the place of occurrence of the external cause

== ENCOUNTER 2024-04-08 21:28 | Emergency (ER) | payer OTHER ==
[2024-04-08 22:00] LABS: BASO % 0.3 % (0.0-1.0); HEMATOCRIT 39.2 % (37.0-47.0); MEAN CELL VOLUME 82.7 fl (81.0-99.0); MEAN CORPUSCULAR HGB 25.3 pg (27.0-31.0); MEAN CORPUSCULAR HGB CONC 30.6 g/dl (33.0-37.0); MEAN PLATELET VOLUME 10.1 fl (9.6-12.3); MONO # 0.5 10*3/uL (0.1-1.0); MONO % 5.5 % (3.0-9.0); NEUT % 81.6 % (47.0-73.0); PLATELET COUNT AUTOMATED 241 10*3/uL (130-400); RED BLOOD COUNT 4.74 10*6/uL (4.10-5.10); RED CELL DISTRI WIDTH 17.8 % (0-14.5); WHITE BLOOD COUNT 9.8 10*3/uL (4.8-10.8)
[2024-04-08 22:12] LABS: BILIRUBIN Negative (Negative); BLOOD Negative (Negative); CLARITY Cloudy (Clear); COLOR Yellow (Yellow); GLUCOSE 2+ (Negative); KETONE Negative (Negative); LEUKO ESTERASE 1+ (Negative); NITRITE Positive (Negative); SPECIFIC GRAVITY 1.015 (1.001-1.030); UROBILINOGEN 0.2 E.U./dl (0.0-1.0)
[2024-04-08 22:21] LABS: BUN 14 mg/dl (9-23); CHLORIDE 108 mmol/L (98-107); POTASSIUM 3.5 mmol/L (3.4-5.1)
[2024-04-08 22:21] LABS: BACTERIA 4+; WBC 41-50 wbc/hpf (0-5)
[2024-04-08 22:22] LABS: ETHYL ALCOHOL < 3.0 mg/dl (<3)
[2024-04-08 22:53] LABS: URINE AMPHETAMINES Positive (1000ng/ml); URINE BARBITURATES Negative (200ng/ml); URINE BENZODIAZEPINES Negative (200ng/ml); URINE CANNABINOIDS (THC) Positive (50ng/ml); URINE COCAINE Negative (300ng/ml); URINE METHADONE Negative (300ng/ml); URINE OPIATES Negative (300ng/ml); URINE PHENCYCLIDINE Negative (25ng/ml)
[2024-04-08] MEDS ORDERED: Ceftriaxone Sodium 1 GM/10 ML SYR IV ONE (23:15)
[2024-04-09] MEDS ORDERED: AMLODIPINE BESY10 MG PO (07:22)
[2024-04-09] MEDS ORDERED: ASPIRIN81 M1 PO (07:22)
[2024-04-09] MEDS ORDERED: VITAMIN D210 MCG PO (07:23)
[2024-04-09] MEDS ORDERED: COREG25 MG PO (07:23)
[2024-04-09] MEDS ORDERED: APATATE LIQUID120 ML PO (07:23)
[2024-04-09] MEDS ORDERED: HYDRALAZINE HYD50 MG PO (07:23)
[2024-04-09] MEDS ORDERED: SODIUM CHLORIDE 0.9% 100 ML BAG IV ONE (09:45)
[2024-04-09] MEDS ORDERED: IOHEXOL 350 MG/ML 100 ML VIAL IV ONE ×2 (09:45→10:02)
[2024-04-09] MEDS ORDERED: SODIUM CHLORIDE 0.9% 100 ML IV ONE (10:01)
[2024-04-09] MEDS ORDERED: LEVETIRACETAM IN NACL (ISO-OS) 100 ML IV ONE ×3 (15:35)
[2024-04-09 19:23] VITALS: BP 160/81
[2024-04-09] MEDS ORDERED: Ceftriaxone Sodium 1 GM/10 ML SYR IV ONE (20:00)
== END 2024-04-09 20:36 | disposition short-term general hospital (02) ==
LOC: ED 21:28
PROVIDERS: Internal Medicine
DX: T50.901A Poisoning by unspecified drugs, medicaments and biological substances, accidental (unintentional), initial encounter (principal); R41.82 Altered mental status, unspecified; F12.10 Cannabis abuse, uncomplicated; F11.10 Opioid abuse, uncomplicated; Z98.890 Other specified postprocedural states; Z90.49 Acquired absence of other specified parts of digestive tract; Y92.009 Unspecified place in unspecified non-institutional (private) residence as the place of occurrence of the external cause

== ENCOUNTER 2024-08-16 18:45 | Emergency (ER) | payer OTHER ==
[~2024-08-16] VITALS: Ht 167.6 cm; Wt 69.4 kg
[~2024-08-16 18:45] MED LIST changes: +AMLODIPINE BESY10 MG PO; +APATATE LIQUID120 ML PO; +ASPIRIN81 M1 PO; +COREG25 MG PO; +HYDRALAZINE HYD50 MG PO; +VITAMIN D210 MCG PO
[2024-08-16] MEDS ORDERED: Naloxone Hydrochloride 2 MG/2 ML SYR ONE (19:07)
[2024-08-16] MEDS ORDERED: SODIUM CHLORIDE 0.9% 500 ML IV ONE (19:10)
[2024-08-16 19:34] LABS: BASO # 0.1 10*3/uL (0.0-0.1); BASO % 0.7 % (0.0-1.0); EOS # 0.2 10*3/uL (0.0-0.4); EOS % 2.3 % (1.0-4.0); HEMATOCRIT 33.1 % (37.0-47.0); MEAN CELL VOLUME 85.1 fl (81.0-99.0); MEAN CORPUSCULAR HGB 26.5 pg (27.0-31.0); MEAN CORPUSCULAR HGB CONC 31.1 g/dl (33.0-37.0); MEAN PLATELET VOLUME 10.8 fl (9.6-12.3); MONO # 0.5 10*3/uL (0.1-1.0); NEUT # 5.2 10*3/uL (2.3-7.9); NEUT % 70.7 % (47.0-73.0); PLATELET COUNT AUTOMATED 214 10*3/uL (130-400); RED BLOOD COUNT 3.89 10*6/uL (4.10-5.10); RED CELL DISTRI WIDTH 15.7 % (0-14.5); WHITE BLOOD COUNT 7.4 10*3/uL (4.8-10.8)
[2024-08-16 19:50] LABS: ALKALINE PHOSPHATASE 80 U/L (46-116); BUN 22 mg/dl (9-23); CHLORIDE 105 mmol/L (98-107); CPK 210 U/L (34-171); POTASSIUM 3.3 mmol/L (3.4-5.1); SGPT/ALT 21 U/L (5-49); TOTAL PROTEIN 6.4 gm/dL (6.0-8.0)
[2024-08-16 19:52] LABS: ETHYL ALCOHOL < 3.0 mg/dl (<3)
[2024-08-16 20:43] LABS: URINE AMPHETAMINES Positive (1000ng/ml); URINE BARBITURATES Negative (200ng/ml); URINE BENZODIAZEPINES Negative (200ng/ml); URINE CANNABINOIDS (THC) Positive (50ng/ml); URINE COCAINE Negative (300ng/ml); URINE METHADONE Negative (300ng/ml); URINE OPIATES Negative (300ng/ml); URINE PHENCYCLIDINE Negative (25ng/ml)
[2024-08-16 22:14] VITALS: BP 116/73
== END 2024-08-16 22:32 | disposition home or self-care (01) ==
LOC: ED 18:45
PROVIDERS: Emergency Medicine
DX: T50.911A Poisoning by multiple unspecified drugs, medicaments and biological substances, accidental (unintentional), initial encounter (principal); R40.4 Transient alteration of awareness; D64.9 Anemia, unspecified; R60.0 Localized edema; Z79.82 Long term (current) use of aspirin; Z79.899 Other long term (current) drug therapy; Z98.890 Other specified postprocedural states; Z90.49 Acquired absence of other specified parts of digestive tract; Z87.891 Personal history of nicotine dependence; Y92.89 Other specified places as the place of occurrence of the external cause

== ENCOUNTER 2024-11-14 14:24 | Emergency (ER) | payer OTHER ==
[~2024-11-14] VITALS: Ht 167.6 cm; Wt 69.4 kg
[2024-11-14] MEDS ORDERED: SODIUM CHLORIDE 0.9% 1,000 ML IV ONE (14:40)
[2024-11-14] MEDS ORDERED: COREG25 MG PO (14:54)
[2024-11-14] MEDS ORDERED: Coumadin5 MG PO (14:55)
[2024-11-14] MEDS ORDERED: GABAPENTIN100 M2 PO (14:56)
[2024-11-14] MEDS ORDERED: DEPAKENE250 M1 PO (14:56)
[2024-11-14] MEDS ORDERED: NEXIUM 24HR20 M2 PO (14:56)
[2024-11-14 15:28] LABS: BUN 18 mg/dl (9-23); SGPT/ALT 43 U/L (5-49)
[2024-11-14 15:43] LABS: ACT PARTIAL THROMBO TIME 39.0 SECONDS (20.0-32.1)
[2024-11-14 16:05] VITALS: BP 92/48
[2024-11-14 17:35] LABS: BASO # 0.0 10*3/uL (0.0-0.1); BASO % 0.4 % (0.0-1.0); EOS # 0.0 10*3/uL (0.0-0.4); EOS % 0.4 % (1.0-4.0); MEAN CELL VOLUME 82.4 fl (81.0-99.0); MEAN CORPUSCULAR HGB 27.3 pg (27.0-31.0); MEAN PLATELET VOLUME 12.5 fl (9.6-12.3); MONO # 0.4 10*3/uL (0.1-1.0); MONO % 15.4 % (3.0-9.0); NEUT # 1.8 10*3/uL (2.3-7.9); NEUT % 67.4 % (47.0-73.0); NUCLEATED RED BLOOD CELL 0.0 % (0.0-0.0); NUCLEATED RED BLOOD CELL 0.0 10*3/uL (0.0-0.0); PLATELET COUNT AUTOMATED 65 10*3/uL (130-400); RED CELL DISTRI WIDTH 15.3 % (0-14.5)
[2024-11-14] MEDS ORDERED: POTASSIUM CHLO20 ME3 PO (18:08)
== END 2024-11-14 18:11 | disposition home or self-care (01) ==
LOC: ED 14:24
PROVIDERS: Emergency Medicine
DX: B34.9 Viral infection, unspecified (principal); R19.7 Diarrhea, unspecified; E87.6 Hypokalemia; D72.819 Decreased white blood cell count, unspecified; N28.9 Disorder of kidney and ureter, unspecified; K40.90 Unilateral inguinal hernia, without obstruction or gangrene, not specified as recurrent; Z79.899 Other long term (current) drug therapy; Z79.01 Long term (current) use of anticoagulants; Z98.890 Other specified postprocedural states; Z90.49 Acquired absence of other specified parts of digestive tract; Z87.891 Personal history of nicotine dependence